=== PATIENT | female | born 1960 | race Caucasian/White ===

== ENCOUNTER 2019-06-05 11:23 | Emergency (ER) | payer OTHER ==
[~2019-06-05] VITALS: Ht 157.5 cm; Wt 87.5 kg
--- NOTE | ~2019-06-05 | EMS ---
[place] [address] EMS Patient Care Report Name: [facility]AYLE[facility] BOWEN [id number] Admission: 06/05/19 Attend Phys: Discharge: 06/05/19 Date of : 56 Report #: [id number] THIS REPORT FOR: //name// Report Transmitted: 06/05/2019 15:26 EMS Care Summary [facility] Incident [id number] @ 06/05/2019 10:12 Incident Location [address] [place] [address] Patient JAYLEEN BOWEN Female, 58 Years 1960 Patient Address [address] [place] [address] Patient History Angina,Seizures,Anxiety, Patient Allergies Codeine, Patient Medications Nitroglycerin, Torsemide, Ranitidine, Topiramate, Klonopin, Gabapentin, Chief Complaint chest pain Disposition Transported No Lights/[place] Reason Fall Victim Transported To [facility] Narrative Med 1 dispatched to the above address on a fall with unknown injury. Chief Complaint: Upon arrival, patient was found sitting on the ground behind her detached garage. She c/o knee pain, otherwise states [place] [address] EMS Patient Care Report Name: JAYLEEN BOWEN Room: [facility]#: [id number] Admission: 06/05/19 Attend Phys: Discharge: 06/05/19 Date of : 56 Report #: [id number] when she slipped on mud and fell. Upon standing her up, she became dizzy and momentarily lost consciousness. Patient then began to c/o chest discomfort. History of Present illness: Patient states she was outside working in the yard. She states she slipped on mud in the garage driveway. There are visible shoe prints on the mud, confirming that she slipped. She states that she hurt her right knee and her upper leg is hurting from sitting there for approx 15-20 minutes. Patient has a history of seizures that she states are from anxiety; she also has a hx of angina but has no hx of [place]. Assessment: Initial Exam: Airway patent. Breathing spontaneous, non-labored. Circulation strong and regular. No obvious bleeding. Patient is alert and oriented x4, p/w/d. Secondary Exam: See "Assessments" Page Reason for Transport by Ambulance: Patient required ALS care during transport, including military source operations officer and IV access. Treatment: Assessment provided. Patient assisted to her feet and assisted to a chair. Patient assisted to cot and secured with cot seat belts. Patient taken to ambulance and cot secured with locking mechanism. Vital signs obtained and military source operations officer applied. 12 lead EKG performed. No STEMI. One failed IV attempt. IV lock established in right forearm. Patient transported to ED and reassessed en route. Patient reluctant to accept nitro spray; she states any kind of scents will cause her to have a seizure. Patient requests to use one of her own nitroglycerin pills that she is carrying in her pocket. Patient assisted with nitroglycerin pill. IV fluids administered. Patient report called to ER. Summary: Upon arrival, patient was found sitting on the ground behind her detached garage. She c/o knee pain, otherwise states she was not injured when she slipped on mud and fell. Upon standing her up, she became dizzy and momentarily lost consciousness and was caught by EMS. She quickly regained consciousness and was assisted to a nearby chair. Patient then began to c/o chest discomfort. She stated that she has a hx of chest pain she describes the pain as dull and rates it 9/10. She attempted to take a nitro from her pocket but was instructed not to by EMS. The cot was quickly retrieved and patient taken to ambulance. Patient was assessed in the ambulance and patient again requested a nitroglycerin. Patient reluctant to accept nitro spray; she states any kind of scents will cause her to have a seizure. Patient requests to use one of her own nitroglycerin pills that she is carrying in her pocket. Patient assisted with nitroglycerin pill. Patient states her pain is completely relieved after nitroglycerin and she feels fine and is ready to go home; [place] [address] EMS Patient Care Report Name: JAYLEEN BOWEN Room: [facility] BEDS AT THE [facility] Anup#: [id number] Admission: 06/05/19 Attend Phys: Discharge: 06/05/19 Date of : 56 Report #: [id number] was during transport and therefore we continued with the patient to the ER. Patient care transferred to RN upon arriving destination. Med 1 returned to service. Initial Vitals @11:03P: 84,SpO2: 100, @10:31P: 98,SpO2: 100, @10:25P: 98,R: 18,BP: 142/98,Pain: 8/10,GCS: 15,Glucose: 99,SpO2: 100,Revised Trauma: 12,3-Lead ECG: Sinus Rhythm @10:43P: 92, @10:32P: 100, @10:38P: 96, @10:48P: 95,R: 16,BP: 135/61,Pain: 8/10,GCS: 15,SpO2: 100,Revised Trauma: 12,3-Lead ECG: Sinus RhythmMI Suspected: false @10:53P: 96,R: 16,BP: 135/64,Pain: 8/10,GCS: 15,SpO2: 100,Revised Trauma: 12,3-Lead ECG: Sinus Rhythm @11:08P: 89,R: 16,BP: 141/89,Pain: 0/10,GCS: 15,SpO2: 100,Revised Trauma: 12,3-Lead ECG: Sinus Rhythm @10:58P: 88,R: 16,BP: 142/93,Pain: 0/10,GCS: 15,SpO2: 100,Revised Trauma: 12,3-Lead ECG: Sinus Rhythm Assessments @10:18MENTAL:Time Oriented,Person Oriented,Event Oriented,Place Oriented,SKIN:HEENT:LUNG SOUNDS:ABDOMEN:PELVIS//GI:EXTREMITIES:Left Leg: Weakness,Left Leg: Edema,Right Leg: Edema,Right Leg: Weakness,PULSE:NEURO:@11:15MENTAL:Event Oriented,Time Oriented,Person Oriented,Place Oriented,SKIN:HEENT:LUNG SOUNDS:ABDOMEN:PELVIS//GI:EXTREMITIES:Left Leg: Edema,Right Leg: Edema,PULSE:NEURO: Impression Chest Pain / Discomfort Procedures @10:18ALS AssessmentResponse: UnchangedSucceeded@10:40 cc (20 ga) Site: Antecubital-LeftResponse: UnchangedFailed@10:43Saline Lock 8cc (18 ga) Site: Forearm-RightResponse: UnchangedSucceeded@10:50Lactated Ringers 500cc () Site: Forearm-RightResponse: ImprovedSucceeded@10:52Nitrostat - 0.4 mcg - SublingualResponse: Improved@10:3212-Lead ECGResponse: UnchangedSucceeded@10:3112-Lead ECGResponse: UnchangedFailed Timeline 10:11,Call Received 10:11,Psap Call 10:12,Dispatched 10:13,[place] [address] EMS Patient Care Report Name: JAYLEEN BOWEN Room: [facility]#: [id number] Admission: 06/05/19 Attend Phys: Discharge: 06/05/19 Date of : 56 Report #: [id number] 10:16,On Scene 10:18,At Patient 10:18,ALS Assessment,Response: UnchangedSucceeded, 10:25,BP: 142/98 M,PULSE: 98,RR: 18 R,SPO2: 100 Ox,ETCO2: ,B,PAIN: 8,GCS: 15, 10:31,12-Lead ECG,Response: UnchangedFailed, 10:31,BP: / M,PULSE: 98,RR: R,SPO2: 100 Ox,ETCO2: ,BG: ,PAIN: ,GCS: , 10:32,12-Lead ECG,Response: UnchangedSucceeded, 10:32,BP: / M,PULSE: 100,RR: R,SPO2: Ox,ETCO2: ,BG: ,PAIN: ,GCS: , 10:38,BP: / M,PULSE: 96,RR: R,SPO2: Ox,ETCO2: ,BG: ,PAIN: ,GCS: , 10:40, cc 20 ga Site: Antecubital-Left,Response: UnchangedFailed, 10:40,Depart Scene 10:43,Saline Lock 8cc 18 ga Site: Forearm-Right,Response: UnchangedSucceeded, 10:43,BP: / M,PULSE: 92,RR: R,SPO2: Ox,ETCO2: ,BG: ,PAIN: ,GCS: , 10:48,BP: 135/61 M,PULSE: 95,RR: 16 R,SPO2: 100 Ox,ETCO2: ,BG: ,PAIN: 8,GCS: 15, 10:50,Lactated Ringers 500cc Site: Forearm-Right,Response: ImprovedSucceeded, 10:52,Nitrostat - 0.4 mcg - Sublingual,Response: Improved 10:53,BP: 135/64 M,PULSE: 96,RR: 16 R,SPO2: 100 Ox,ETCO2: ,BG: ,PAIN: 8,GCS: 15, 10:58,BP: 142/93 M,PULSE: 88,RR: 16 R,SPO2: 100 Ox,ETCO2: ,BG: ,PAIN: 0,GCS: 15, 11:03,BP: / M,PULSE: 84,RR: R,SPO2: 100 Ox,ETCO2: ,BG: ,PAIN: ,GCS: , 11:08,BP: 141/89 M,PULSE: 89,RR: 16 R,SPO2: 100 Ox,ETCO2: ,BG: ,PAIN: 0,GCS: 15, 11:16,At Destination 12:11,Call Closed Disclaimer v1.1 Copyright 2019 [employer] This EMS Care Summary contains data elements from the applicable legal record (which may be displayed differently). It is designed to provide pertinent information for the following purposes: continuity of care, clinical quality, and state data reporting. The complete legal record is available to ED staff and administrators of the receiving hospital in ES's Patient Tracker. All data is provided "as is."
[2019-06-05] MEDS ORDERED: CLONAZEPAM 0.50.5 M1 PO (11:27)
[2019-06-05] MEDS ORDERED: NEURONTIN800 MG PO (11:28)
[2019-06-05] MEDS ORDERED: NAPROSYN500 MG PO (11:28)
[2019-06-05] MEDS ORDERED: NITROSTAT0.4 MG SUBLING (11:28)
[2019-06-05] MEDS ORDERED: ZANTAC 150MG T150 M1 PO (11:28)
[2019-06-05] MEDS ORDERED: TOPAMAX100 MG PO (11:29)
[2019-06-05] MEDS ORDERED: DEMADEX20 MG PO (11:29)
[2019-06-05 11:42] LABS: HEMATOCRIT 36.3 % (37.0-47.0); HEMOGLOBIN 12.2 gm/dL (12.0-15.0); MCH 30.5 pg (26.0-34.0); MCHC 33.4 g/dL (28.0-37.0); MCV 91.1 fL (80.0-100.0); MPV 8.7 fl. (7.2-11.1); PLATELET COUNT* 219 thou/uL (150-400); POLYS 68.1 %; RBC 3.99 mil/uL (4.20-5.00)
[2019-06-05 11:43] LABS: ABSOLUTE BASOPHILS 0.1 thou/uL (0.0-0.2); ABSOLUTE EOSINOPHILS 0.1 thou/uL (0.0-0.7); ABSOLUTE LYMPHOCYTES 1.6 thou/uL (0.8-5.3); ABSOLUTE MONOCYTES 0.4 thou/uL (0.0-1.2); ABSOLUTE NEUTROPHILS 4.8 thou/uL (1.6-8.1); BASOPHILS 0.9 %; EOSINOPHILS 1.9 %; LYMPHOCYTES 23.3 %; MONOCYTES 5.8 %; NUCLEATED RBCS 0 /100WBC
[2019-06-05 11:51] LABS: CALCIUM 9.4 mg/dL (8.5-10.1); CREATININE 0.8 mg/dL (0.6-1.3); POTASSIUM 3.6 mmol/L (3.5-5.1)
[2019-06-05 11:55] LABS: ALBUMIN 3.6 g/dL (3.4-5.0); MAGNESIUM 1.9 mg/dL (1.8-2.4); TOTAL BILIRUBIN 0.2 mg/dL (<0.1-1.0)
[2019-06-05 15:15] VITALS: BP 144/77
--- NOTE | 2019-06-05 18:15 | EKG ---
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
--- NOTE | 2019-06-08 16:10 | EKG ---
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1960 Requested By: Salvador Patel Order Number: [id number] MD: Juan Daniel Reza Measurements Intervals [place] Rate: 73 P: 46 [place]: 173 QRS: -29 QRSD: 84 T: 17 QT: 393 QTc: 433 Interpretive Statements Sinus rhythm Borderline left axis deviation Low voltage, precordial leads Compared to ECG 06/05/2019 11:25:01 No significant changes Electronically Signed On 06-08-2019 16:10:29 CDT by Juan Daniel Reza [email or web address] <ELECTRONICALLY SIGNED> By: Juan Daniel Reza MD, [facility] 06/08/19 1610 144 144 Juan Daniel Reza MD, FAC /EPI
== END 2019-06-05 15:15 | disposition home or self-care (01) ==
LOC: M.ERS 11:23
PROVIDERS: Emergency Medicine Emergency Medical Services
DX: R07.89 Other chest pain (principal); M25.562 Pain in left knee; F41.9 Anxiety disorder, unspecified; Z88.5 Allergy status to narcotic agent; Z88.6 Allergy status to analgesic agent